=== PATIENT | male | born 1995 | race Caucasian/White ===

== ENCOUNTER 2021-06-08 19:50 | Emergency (ER) | payer OTHER ==
[~2021-06-08] VITALS: Ht 180.3 cm; Wt 112.6 kg
[2021-06-08] MEDS ORDERED: LIDOCAINE 1% MDV 20ML VIAL SC ONE (23:25)
[2021-06-08 23:27] VITALS: BP 140/90
== END 2021-06-09 00:07 | disposition home or self-care (01) ==
LOC: M ED 19:50
DX: S91.011A Laceration without foreign body, right ankle, initial encounter (principal); W26.8XXA Contact with other sharp object(s), not elsewhere classified, initial encounter; Y92.018 Other place in single-family (private) house as the place of occurrence of the external cause